=== PATIENT | male | born 1980 | race Caucasian/White ===

== ENCOUNTER 2016-03-05 14:36 | Emergency (ER) | payer BC, OTHER ==
[2016-03-05 16:33] LABS: Hematocrit 45.4 % (42.0-52.0); Hemoglobin 15.6 gm/dL (13.5-18.0); Mean Cell Volume 86.8 fl (78-100); Mean Corpuscular Hemoglobin 29.8 pg (27-31); Mean Corpuscular Hgb Conc 34.4 g/dl (32-36); Mean Platelet Volume 10.2 fl (6.0-9.5); Neutrophil # 6.2 K/mm3 (1.3-6.0); Neutrophil % 66.8 % (42-75.0); Platelet Count 326 K/mm3 (150-450); Red Blood Count 5.23 M/mm3 (4.7-6.0); Red Cell Distribution Width 12.5 % (11.5-14.0); White Blood Count 9.3 K/mm3 (4.0-10.5)
[2016-03-05 16:40] LABS: Albumin * 4.1 gm/dl (3.4-5.0); Anion Gap 12.4 mmol/L (6.8-13.8); BUN/Creatinine Ratio 11.1 (9.0-21.6); Bilirubin, Total 0.4 mg/dL (0.0-1.1); Ca. Corrected For Albumin 8.9 mg/dL (8.4-10.2); Calcium * 9.3 mg/dL (7.9-10.9); Carbon Dioxide 28.1 mmol/L (24-32.6); Potassium 4.5 mmol/L (3.4-4.6); Total Protein 7.5 gm/dL (6.2-8.2)
[2016-03-05] MEDS ORDERED: ONDANSETRON 4 MG TAB.RAPDIS PO ONE ×2 (17:40→18:15)
[2016-03-05] MEDS ORDERED: ONDANSETRON 4 MG TAB.RAPDIS ONE ×2 (17:48→18:23)
--- NOTE | 2016-03-05 17:50 | ERNOTE ---
Medical Problem HPI - Narrative Date of Service: 03/05/16 - General Chief Complaint: Nausea/Vomiting Time Seen by Provider: 03/05/16 17:28 Source: patient, family Exam Limitations: no limitations - Immun/Allergies/Home Medications Immunizations: IMMUNIZATION HX Immunizations Up to Date Yes History of Influenza Vaccine No Hx Pneumococcal Vaccination No Allergies/Adverse Reactions: Allergies No Known Allergies Allergy (Verified 03/05/16 15:58) Home Medications: HOME MEDICATIONS Azithromycin [Zithromax] 250 mg PO DAILY #4 tablet 03/05/16 [Last Taken Unknown] Ondansetron [Zofran Odt] 8 mg PO QID #12 tab.rapdis 03/05/16 [Last Taken Unknown ] - History of Present History Narrative: 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 He took all of his antibiotics for the strep throat. He hasn't felt well since. About a week ago he developed a cough productive of mucopurulent phlegm , no fever, but chills and sweats, headache, myalgias, and now weighs. 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 He has tested negative for influenza here in the emergency room. He was still somewhat nauseated, but is no longer vomiting. Timing: constant, getting worse Severity: moderate Modifying Factors - (Improves): Present: other - nothing Modifying Factors - (Worsens): Present: eating, other - drinking Review of Systems - Review of Systems Constitutional: Present: chills, diaphoresis, fatigue, malaise, decreased activity level EYE: Present: no symptoms reported ENT: Present: sore throat Respiratory: Present: cough Cardiology: Present: no symptoms reported Gastrointestinal/Abdominal: Present: nausea, vomiting, diarrhea Genitourinary: Present: no symptoms reported Musculoskeletal: Present: muscle pain Skin: Present: no symptoms reported Neurological: Present: headache Endocrine: Present: no symptoms reported Hematologic/Lymphatic: Present: no symptoms reported Psych: Present: no symptoms reported All Other Systems: All systems neg except as marked - Patient's Past Medical History Patient History - Medical: No pertinent hx Patient History - Cardiac/Respiratory: No pertinent hx Patient History - Cancer: No Hx of Cancer Patient History - Surgical Procedures: No surgical history - Social History Living Situations: home Smoking Status: Never smoker Alcohol Use: occasionally Drug Use: none Physical Exam - Physical Exam General Appearance: Present: wd/wn, alert, no apparent distress Eye Exam: Normal inspection: bilateral, PERRL: bilateral, EOMI: bilateral Ears, Nose, Throat: Present: normal ENT inspection, hearing grossly normal, nasal congestion, pharyngeal erythema Neck: Present: normal inspection, nontender Respiratory: Present: no respiratory distress, lungs clear Cardiovascular/Chest: Present: regular rate, rhythm, no murmur Gastrointestinal/Abdominal: Present: normal bowel sounds, nontender, nondistended, soft, no organomegaly Back Exam: Present: normal inspection Extremity Exam: Present: normal inspection, no edema Neurological Exam: Present: alert, oriented, normal mood/affect Skin Exam: Present: normal color, warm/dry ED Progress - Results and Orders Patient's Lab Results:: I have reviewed the patient's lab results. - Vital Signs Patient's Vital Signs:: I have reviewed the patient's vital signs. Vital Signs: Vital Signs 03/05/16 15:55 Temperature 36.4 C L Pulse Rate 86 Respiratory 16 Rate Blood Pressure 131/88 O2 Sat by Pulse 98 Oximetry - X-Ray X-Ray #1 X-Ray: chest Interpretation: Interp. by id - chest xray non acute - Progress/Reassessment Chief Complaint: Nausea/Vomiting Departure - Departure Clinical Impression: Bronchitis, Viral gastroenteritis Condition: Good Instructions: Acute Bronchitis, Viral Gastroenteritis, Adult, [id number], Clear Liquid Diet, [id number], Form - Excuse from Work, School, or Physical Activity Additional Instructions: Rest. Clear liquid diet for 72 hours. Tylenol 650 mg four times daily on a regular basis till well. Followup with your doctor in 2 days. Referrals: [Primary Care Provider] - Prescriptions: Azithromycin [Zithromax] 250 mg PO DAILY #4 tablet Ondansetron [Zofran Odt] 8 mg PO QID #12 tabmarina
[2016-03-05] MEDS ORDERED: AZITHROMYCIN 250 MG TABLET PO ONE (18:15)
[2016-03-05] MEDS ORDERED: ACETAMINOPHEN 325 MG TABLET PO ONE (18:17)
[2016-03-05] MEDS ORDERED: AZITHROMYCIN 250 MG TABLET ONE (18:23)
[2016-03-05] MEDS ORDERED: ACETAMINOPHEN 325 MG TABLET ONE (18:24)
[2016-03-05 18:34] VITALS: BP 136/86
== END 2016-03-05 18:32 | disposition home or self-care (01) ==
LOC: ER 14:36
DX: J40 Bronchitis, not specified as acute or chronic (principal); A08.4 Viral intestinal infection, unspecified